=== PATIENT | male | born 1965 | race Caucasian/White ===

== ENCOUNTER → 2023-04-12 | Outpatient (CLI) | payer OTHER ==
--- NOTE | 2023-04-12 09:16 | CT ---
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 Coronal and sagittal reconstructions performed. CT DLP: 1665.70 mGycm Automated exposure control for dose reduction was used. FINDINGS: Visualized intracranial structures, mastoid air cells, and orbits and globes appear intact. There is a small 1.2 cm mucosal retention cyst along the floor the right maxillary sinus. Nasopharynx is clear. Mild bilateral palatine tonsillar hypertrophy with a couple left-sided tonsilloliths measuring up to 3 mm. Mild bilateral lingual tonsillar hypertrophy also noted. Otherwise, oropharynx appears clear. Epiglottis and prevertebral soft tissues are satisfactory. Glottic and subglottic structures as well as the tracheal column appears clear. The thyroid, submandibular, and parotid glands appear satisfactory. Numerous prominent but nonenlarged upper cervical lymph nodes measuring up to 1.2 cm short axis. No l ymphadenopathy by CT size criteria. Moderate degenerative disc disease C5-C7 levels. Disc osteophyte complex here may contribute to moder ate narrowing of the spinal canal. CHEST: Heart is normal size without pericardial effusion. Ectatic upper descending thoracic aorta 3.4 cm. Conventional arch vessel branching anatomy. No thorac ic lymphadenopathy by CT size criteria. Mildly enlarged caliber to the main right and left pulmonary arteries up to 2.7 cm may reflect underl binh pulmonary hypertension. No thoracic lymphadenopathy by CT size criteria. Mild hazy dependent atelectasis posteriorly in the lungs. No consolidation or pleural effusion. Tiny hiatal hernia. Moderate stool burden. No osseous destructive process. IMPRESSION: NECK: 1. MILD BILATERAL PALATINE TONSILLAR AND LINGUAL TONSILLAR HYPERTROPHY. A COUPLE TINY 3 MM LEFT PALAT INE TONSIL TONSILLOLITHS. 2. SCATTERED NONENLARGED BUT SOME PROMINENT UPPER CERVICAL LYMPH NODES MEASURING UP TO 1.2 CM SHORT A XIS, LIKELY REACTIVE/POST INFLAMMATORY. NO SUSPICIOUS MASS OR ABNORMAL LYMPHADENOPATHY IDENTIFIED. CHEST: 3. NO EVIDENCE FOR METASTATIC DISEASE TO THE CHEST. 4. POSSIBLE UNDERLYING PULMONARY ARTERIAL HYPERTENSION. 5. TINY HIATAL HERNIA.
== END | disposition home or self-care (01) ==
LOC: RADCTMAIN 07:05
PROVIDERS: ATTEND Otolaryngology
DX: C32.9 Malignant neoplasm of larynx, unspecified (principal); J35.1 Hypertrophy of tonsils; K44.9 Diaphragmatic hernia without obstruction or gangrene; R59.0 Localized enlarged lymph nodes
CPT/HCPCS: 70491; 71260; Q9967

== ENCOUNTER 2023-11-08 00:56 | Emergency (ER) | payer OTHER ==
[2023-11-08 01:23] VITALS: RESP 18; TEMP 98.1
--- NOTE | 2023-11-08 02:04 | ED ---
ENT HPI - General Chief complaint: ENT Stated complaint: Swollen lymph nodes, ear, jaw Time Seen by Provider: 11/08/23 01:05 Source: patient Mode of arrival: ambulatory Limitations: no limitations - History of Present Illness Initial comments: 58-year-old male presents to the ED with a chief complaint of ear infection. Patient states he was seen 2 days ago at urgent care and was diagnosed with ear infection. Patient states he was arrived Polytrim eardrops and Augmentin. Despite taking this, reports no improvement of his symptoms and thus prompting presentation to the ED for further evaluation. Denies any hearing loss. No fever or chills. No chest pain or shortness of breath. No other complaints. - Related Data Home Medications Medication Instructions Recorded Confirmed No Known Home Medications 07/11/15 07/11/15 Allergies Allergy/AdvReac Type Severity Reaction Status Date / Time No Known Allergies Allergy Verified 11/08/23 01:04 Review of Systems ROS Statement: Those systems with pertinent positive or pertinent negative responses have been documented in the HPI. ROS Other: All systems not noted in ROS Statement are negative. Past Medical History Past Medical History: No Reported History History of Any Multi-Drug Resistant Organisms: None Reported Past Surgical History: No Surgical Hx Reported Past Psychological History: No Psychological Hx Reported Smoking Status: Never smoker Past Alcohol Use History: Occasional Past Drug Use History: None Reported General Exam Limitations: no limitations General appearance: alert ENT exam: Present: other (No mastoid process tenderness palpation. No overlying warmth, erythema, or edema to the mastoid process. Right external ear canal does appear erythematous. TM obscured due to patient's ear hairs.) Respiratory exam: Present: normal lung sounds bilaterally Cardiovascular Exam: Present: regular rate, normal rhythm GI/Abdominal exam: Present: soft Neurological exam: Present: alert, oriented X3 Skin exam: Present: warm, dry Course Vital Signs 11/08/23 01:02 Temperature 98.1 F Pulse Rate 81 Respiratory 18 Rate Blood Pressure 145/92 O2 Sat by Pulse 96 Oximetry Medical Decision Making - Medical Decision Making Was pt. sent in by a medical professional or institution (, PA, [employer], urgent care, hospital, or correction...) When possible be specific @ -No Did you speak to anyone other than the patient for history (EMS, parent, family, police, friend...)? What history was obtained from this source @ -No Did you review nursing and triage notes (agree or disagree)? Why? @ -I reviewed and agree with nursing and triage notes Were old charts reviewed (outside hosp., previous admission, EMS record, old EKG, old radiological studies, urgent care reports/EKG's, correction records)? Report findings @ -No old charts were reviewed Differential Diagnosis (chest pain, altered mental status, abdominal pain women, abdominal pain men, vaginal bleeding, weakness, fever, dyspnea, syncope, headache, dizziness, GI bleed, back pain, seizure, CVA, palpatations, mental health, musculoskeletal)? @ -Otitis externa, otitis media, otitis externa. This is not meant to be an all-inclusive list. EKG interpreted by me (3pts min.). @ -None X-rays interpreted by me (1pt min.). @ -None done CT interpreted by me (1pt min.). @ -None done U/S interpreted by me (1pt. min.). @ -None done What testing was considered but not performed or refused? (CT, X-rays, U/S, labs)? Why? @ -None What meds were considered but not given or refused? Why? @ -None Did you discuss the management of the patient with other professionals (professionals i.e. , PA, [employer], lab, RT, psych nurse, social sciences research scientist, wardrobe specialty worker, t eacher, title officer, adult protective caseworker)? Give summary @ -No Was smoking cessation discussed for >3mins.? @ -No Was critical care preformed (if so, how long)? @ -No Were there social determinants of health that impacted care today? How? (Homelessness, low income, unemployed, alcoholism, drug addiction, transportation, low edu. Level, literacy, decrease access to med. care, residential, rehab)? @ -No Was there de-escalation of care discussed even if they declined (Discuss DNR or withdrawal of care, Hospice)? DNR status @ -No What co-morbidities impacted this encounter? (DM, HTN, Smoking, COPD, CAD, Cancer, CVA, ARF, Chemo, Hep., AIDS, mental health diagnosis, sleep apnea, morbid obesity)? @ -None Was patient admitted / discharged? Hospital course, mention meds given and ro osage, prescriptions, significant lab abnormalities, going to OR and other pertinent info. @ -Discharge 58-year-old male presenting to the ED with ear pain. Seen at urgent care 2 days ago was prescribed Polytrim eardrops and Augmentin despite taking these medications presenting to the ED due to continued symptoms and that his face also feels more swollen than usual. On exam, there is no mastoid process tenderness to palpation. Patient is tolerating secretions. No stridor. Patient reassured. Advises continuing medications prescribed from urgent care. Advised follow-up with PCP. Discussed return precautions with patient and family who verbalizes agreement. Undiagnosed new problem with uncertain prognosis? @ -No Drug Therapy requiring intensive monitoring for toxicity (Heparin, Nitro, Insulin, Cardizem)? @ -No Were any procedures done? @ -No Diagnosis/symptom? @ -Otitis externa Acute, or Chronic, or Acute on Chronic? @ -Acute Uncomplicated (without systemic symptoms) or Complicated (systemic symptoms)? @ -Uncomplicated Side effects of treatment? @ -No Exacerbation, Progression, or Severe Exacerbation? @ -No Poses a threat to life or bodily function? How? (Chest pain, [place], CA, pneumonia, PE, COPD, DKA, ARF, appy, cholecystitis, CVA, Diverticulitis, Homicidal, Suicidal, threat to staff... and all critical care pts) @ -No Disposition Clinical Impression: Otitis externa Disposition: HOME SELF-CARE Condition: Good Instructions (If sedation given, give patient instructions): Earache (ED) Additional Instructions: Please return to the Emergency Department if symptoms worsen or any other concerns. Please follow up with your PCP. Is patient prescribed a controlled substance at d/c from ED?: No Referrals: Jarvis Frausto MD [Primary Care Provider] - 1-2 days Time of Disposition: 02:08
[2023-11-08 02:34] VITALS: BP 124/80; PULSE 76
== END 2023-11-08 02:20 | disposition home or self-care (01) ==
LOC: EC 00:56
DX: H60.91 Unspecified otitis externa, right ear (principal)
CPT/HCPCS: 99282